=== PATIENT | female | born 1960 | race Caucasian/White ===

== ENCOUNTER → 2018-01-05 | Outpatient (CLI) | payer OTHER | LOC: M WUC 11:45 | DX: S92.415A Nondisplaced fracture of proximal phalanx of left great toe, initial encounter for closed fracture (principal); M17.11 Unilateral primary osteoarthritis, right knee; X58.XXXA Exposure to other specified factors, initial encounter; Y92.9 Unspecified place or not applicable | CPT/HCPCS: 73564 ==

== ENCOUNTER → 2020-02-10 | Outpatient (CLI) | payer OTHER ==
--- NOTE | 2020-03-02 09:00 | REP ---
COMPLETE ABDOMINAL ULTRASOUND CLINICAL: Abdominal pain and bloating. TECHNIQUE: Real-time perez scale and color Doppler evaluation using curved array transducer. FINDINGS: The liver is mildly echogenic suggesting fatty infiltration without focal hepatic lesion identified. Spleen and pancreas are normal in contour, size, and echogenicity without focal pancreatic or splenic lesion identified. The gallbladder is normal and without gallstones, wall thickening, or pericholecystic fluid. No biliary ductal dilatation is appreciated and the common bile duct measures 2.9 mm in diameter. The bilateral kidneys demonstrate increased central sinus fat and cortical thinning consistent with chronic renal disease. Left kidney measures 1.5 x 4.7 x 6.5 cm without hydronephrosis, nephrolithiasis, or obvious abnormality. Right kidney measures 9.4 x 4.8 x 3.9 cm without hydronephrosis, nephrolithiasis, or obvious abnormality. Abdominal aorta appears normal. No ascites. IMPRESSION: 1. Hepatosteatosis without focal hepatic lesion. 2. Mild asymmetric atrophy to the right kidney along with bilateral medical renal disease. MTDD
== END ==
LOC: M RAD 07:34
PROVIDERS: ATTEND Nurse Practitioner Family
DX: K76.0 Fatty (change of) liver, not elsewhere classified (principal); N18.9 Chronic kidney disease, unspecified; R19.4 Change in bowel habit; R10.9 Unspecified abdominal pain; R14.0 Abdominal distension (gaseous)

== ENCOUNTER → 2020-08-16 | Outpatient (REF) | payer OTHER | LOC: M LAB REF 12:05 | PROVIDERS: ATTEND Internal Medicine | DX: R14.0 Abdominal distension (gaseous) (principal); K76.0 Fatty (change of) liver, not elsewhere classified ==

== ENCOUNTER → 2020-09-12 | Outpatient (CLI) | payer OTHER | LOC: M LABSMTC 09:40 | PROVIDERS: ATTEND Anesthesiology | DX: Z11.52 Encounter for screening for COVID-19 (principal) ==

== ENCOUNTER 2020-09-16 07:24 | Day surgery (SDC) | payer OTHER ==
[~2020-09-16] VITALS: Ht 175.3 cm; Wt 93.2 kg
[~2020-09-16 07:24] MED LIST: LR 1,000 ML IV ONE; ceFAZolin SOD 2 GM in IV 1 EA IV ONE
[2020-09-16] MEDS ORDERED: fentaNYL 250 MCG/5 ML INJECTION (J3010) As Ordered ONE (07:25)
[2020-09-16] MEDS ORDERED: MIDAZOLAM INJ 2MG/2ML VIAL (J2250 PER 1MG) As Ordered ONE (07:26)
[2020-09-16] MEDS ORDERED: ROCURONIUM BROMIDE 50 MG/5 ML VIAL As Ordered ONE (07:27)
[2020-09-16] MEDS ORDERED: dexameTHASONE 4 MG/ML 1ML VIAL (J1100 PER 1MG) As Ordered ONE ×2 (07:27→08:50)
[2020-09-16] MEDS ORDERED: LIDOCAINE 2% 100MG/5ML SDV (FOR ANES.) As Ordered ONE (07:27)
[2020-09-16] MEDS ORDERED: propofoL 200 MG/20 ML VIAL As Ordered ONE (07:27)
[2020-09-16] MEDS ORDERED: KETOROLAC 60MG 2ML VIAL As Ordered ONE (07:28)
[2020-09-16] MEDS ORDERED: ONDANSETRON 4MG/2ML VIAL As Ordered ONE (07:28)
[2020-09-16] MEDS ORDERED: BUPIVACAINE LIPOSOME/PF 1.3% 20ML VIAL (13.3MG/ML)(EXPAREL)(C9290 PER1MG) As Ordered ONE (07:33)
[2020-09-16] MEDS ORDERED: BUPIVACAINE HCL 0.25% 10ML VIAL As Ordered ONE (07:33)
[2020-09-16] MEDS ORDERED: BUPIVACAINE/EPIN 0.25% 30 ML VIAL As Ordered ONE (07:33)
[2020-09-16] MEDS ORDERED: ePHEDrine SULFATE 25 MG/5 ML(5MG/ML) SYRINGE As Ordered ONE (08:54)
[2020-09-16] MEDS ORDERED: SUGAMMADEX SODIUM 500 MG/5 ML VIAL (BRIDION) As Ordered ONE (09:02)
[2020-09-16] MEDS ORDERED: LR 1,000 ML IV SCH (09:35)
[2020-09-16] MEDS ORDERED: oxyCODONE 5MG TAB PO PRN (09:35)
[2020-09-16] MEDS ORDERED: fentaNYL 100 MCG/2 ML INJECTION (J3010) IV PRN (09:35)
[2020-09-16] MEDS ORDERED: ONDANSETRON 4MG/2ML VIAL IV PRN (09:35)
[2020-09-16] MEDS ORDERED: NS 1,000 ML IV SCH (10:35)
[2020-09-16] MEDS ORDERED: traMADol 50 MG TAB PO PRN (10:35)
[2020-09-16 10:37] VITALS: BP 129/73
--- NOTE | 2020-09-16 11:05 | RO ---
OPERATIVE NOTE DATE OF OPERATION: 09/16/2020 PREOPERATIVE DIAGNOSIS: Umbilical hernia. POSTOPERATIVE DIAGNOSIS: Umbilical hernia. PROCEDURE: Umbilical hernia repair. SURGEON: Tomi Roldan Jr., MD. SHEET [employer] FURNACE INSTALLER: ANESTHESIA: General endotracheal anesthesia. EBL: Minimal. FLUIDS: Crystalloid. BRIEF PROCEDURE SUMMARY: The patient was brought to the operating room and was given general anesthesia. After adequate anesthesia and preoperative antibiotics were given, the patient was prepped and draped in the usual sterile fashion. Next, an infraumbilical incision was made with a skin knife. Blunt dissection was carried down to the fascia, and the hernia was circumferentially dissected off surrounding tissue. It was then transected at the level of the fascia. There was some omentum that was coming through an 8 mm defect. This was closed with two [id number] 0 Ethibond after transected this piece of omentum in the hernia sac, and the skin was quite attenuated at the umbilicus. A 3-0 Vicryl was used to approximate the dermis, and 4-0 Vicryl subcuticular was used to approximate the skin. Steri-Strips and a dry sterile dressing were applied. The patient was awakened, extubated, and brought to the recovery room awake, alert, and hemodynamically stable. Sponge and needle counts correct x2.
== END 2020-09-16 11:37 | disposition home or self-care (01) ==
LOC: M SDC 07:24
PROVIDERS: ATTEND Surgery
DX: K42.9 Umbilical hernia without obstruction or gangrene (principal); K57.90 Diverticulosis of intestine, part unspecified, without perforation or abscess without bleeding
CPT/HCPCS: 49585; 88302; C9290; J0690; J1100; J1885; J2250; J2405; J3010

== ENCOUNTER → 2020-10-13 | Outpatient (CLI) | payer OTHER ==
--- NOTE | 2020-10-13 17:23 | REP ---
INDICATION: ABDOMINAL DISTENSION (GASEOUS), BLOATING. COMPARISON: None. TECHNIQUE/RADIOTRACER AND DOSE: Following the intravenous administration of 1.08 mCi technetium 99 M sulfur colloid in 2 scrambled eggs and 6 oz of water, multiple images of the upper abdomen are performed in the anterior and posterior projections for 90 minutes. FINDINGS: The gastric activity is measured. At the end of 90 minutes 85% of the ingested activity has emptied from the stomach. The T1/2 is 50 minutes which is normal. IMPRESSION: Normal gastric emptying time. <Electronically signed by Neal France > 10/13/20 [id number]
== END ==
LOC: M RAD 09:45
PROVIDERS: ATTEND Internal Medicine Gastroenterology
DX: R14.0 Abdominal distension (gaseous) (principal); K57.30 Diverticulosis of large intestine without perforation or abscess without bleeding; K76.0 Fatty (change of) liver, not elsewhere classified; R10.9 Unspecified abdominal pain; R19.5 Other fecal abnormalities; K64.8 Other hemorrhoids
CPT/HCPCS: 78264; A9541

== ENCOUNTER → 2023-01-02 | Outpatient (CLI) | payer OTHER | LOC: M WUC 14:37 | PROVIDERS: ATTEND Nurse Practitioner Family | DX: R10.9 Unspecified abdominal pain (principal); R14.0 Abdominal distension (gaseous); K58.9 Irritable bowel syndrome, unspecified; K76.0 Fatty (change of) liver, not elsewhere classified ==

== ENCOUNTER → 2025-01-12 | Outpatient (CLI) | payer OTHER | LOC: M WUC 09:13 | PROVIDERS: ATTEND Internal Medicine | DX: R91.8 Other nonspecific abnormal finding of lung field (principal) ==